=== PATIENT | male | born 1950 | race Hispanic/Latino ===

== ENCOUNTER 2025-01-01 05:41 | Inpatient (IN) | payer MEDICARE ==
[2025-01-01] VITALS (8 sets, daily range): BP systolic 104–125; BP diastolic 54–69; PULSE 66–94; RESP 17–18; TEMP 97.3–97.6; O2SAT 97–100
[~2025-01-01] VITALS: Ht 172.7 cm; Wt 53.1 kg
[~2025-01-01 05:41] MED LIST: MULTI-VITAMIN1 EACH PO
[2025-01-01 06:53] LABS: BASOPHILS % 0.3 % (0.0-1.0); EOSINOPHILS # (AUTO) 0.1 (0.0-0.4); EOSINOPHILS % 1.3 % (0.0-6.0); HEMATOCRIT 39.4 % (38.2-49.6); HEMOGLOBIN 12.5 g/dL (14.0-18.0); LYMPHOCYTES # (AUTO) 3.5 (1.0-3.2); LYMPHOCYTES % 37.7 % (18.0-39.1); MEAN CORPUSCULAR HEMOGLOBIN 28.9 pg (28-32); MEAN CORPUSCULAR HGB CONC 31.7 g/dL (31-35); MONOCYTES # (AUTO) 0.6 (0.2-0.8); MONOCYTES % 6.3 % (4.4-11.3); NEUTROPHILS % 54.2 % (38.7-80.0); PLATELET COUNT 297 x10e3/uL (140-360); RED BLOOD COUNT 4.33 x10e6/uL (4.3-5.7); RED CELL DISTRIBUTION WIDTH 14.1 % (11.7-14.4); WHITE BLOOD COUNT 9.25 x10e3/uL (4.8-10.8)
[2025-01-01] MEDS: GENTAMICIN 80MG/NS 100 ML 200 ML IV ONE (07:02)
[2025-01-01] MEDS: SODIUM CHLORIDE 0.9% 1000ML 1,000 ML ONE (07:03)
[2025-01-01] MEDS: CEFTRIAXONE 1 GM VIAL ONE (07:03)
[2025-01-01 07:16] LABS: ANION GAP 14.3 mmol/L (8-16); CALCIUM 9.8 mg/dL (8.4-10.2); CREATININE, SERUM 1.38 mg/dL (0.72-1.25); POTASSIUM 4.3 mmol/L (3.5-5.1)
[2025-01-01] MEDS ORDERED: FENTANYL CITRATE/PF 100MCG/2 ML INJ ONE (08:02)
[2025-01-01] MEDS ORDERED: PROPOFOL IV EMULSION 10 MG/ML 20 ML VIAL ONE (08:03)
[2025-01-01] MEDS ORDERED: LIDOCAINE HCL 2% LOCAL INJ 5 ML SDV VIAL INJ ONE (08:03)
[2025-01-01] MEDS ORDERED: ETOMIDATE 40 MG/ 20ML VIAL IV ONE (08:27)
[2025-01-01] MEDS ORDERED: EPHEDRINE SULFATE INJ 50 MG/ML VIAL ONE (08:32)
[2025-01-01] MEDS ORDERED: ONDANSETRON HCL INJ 2MG/ML 2ML 2 MG/ML VIAL ONE (09:06)
[2025-01-01] MEDS ORDERED: DEXAMETHASONE SOD PHOS INJ 4 MG/ML SDV ONE (09:06)
[2025-01-01] MEDS ORDERED: METOCLOPRAMIDE HCL 10 MG/2ML VIAL ONE (09:50)
[2025-01-01] MEDS ORDERED: ONDANSETRON HCL INJ 2MG/ML 2ML 2 MG/ML VIAL IV PRN (10:45)
[2025-01-01] MEDS ORDERED: DIPHENHYDRAMINE HCL INJ 50 MG/ML VIAL IM PRN (10:45)
[2025-01-01] MEDS: SODIUM CHLORIDE 0.9% 1000ML 1,000 ML IV SCH (12:48)
[2025-01-01] MEDS: SENNA-S TABLET PO SCH (17:16)
[2025-01-01] MEDS: ACETAMINOPHEN 1000 MG/100 ML IV PRN (18:14)
[2025-01-02] VITALS (10 sets, daily range): BP systolic 97–131; BP diastolic 55–83; PULSE 70–97; RESP 17–20; TEMP 97.4–98.3; O2SAT 94–100
[2025-01-02 06:15] LABS: BASOPHILS % 0.1 % (0.0-1.0); HEMATOCRIT 32.6 % (38.2-49.6); LYMPHOCYTES # (AUTO) 2.6 (1.0-3.2); LYMPHOCYTES % 19.2 % (18.0-39.1); MEAN CORPUSCULAR HEMOGLOBIN 28.6 pg (28-32); MEAN CORPUSCULAR HGB CONC 30.7 g/dL (31-35); MEAN CORPUSCULAR VOLUME 93.1 fL (81-99); MONOCYTES # (AUTO) 0.8 (0.2-0.8); MONOCYTES % 6.3 % (4.4-11.3); NEUTROPHILS # (AUTO) 9.9 (2.1-6.9); PLATELET COUNT 277 x10e3/uL (140-360); RED CELL DISTRIBUTION WIDTH 14.1 % (11.7-14.4); WHITE BLOOD COUNT 13.39 x10e3/uL (4.8-10.8)
[2025-01-02 06:31] LABS: ANION GAP 13.1 mmol/L (8-16); CALCIUM 8.3 mg/dL (8.4-10.2); CREATININE, SERUM 1.23 mg/dL (0.72-1.25); MAGNESIUM 1.5 MG/DL (1.3-2.1); POTASSIUM 4.1 mmol/L (3.5-5.1)
[2025-01-02] MEDS: CITRATE OF MAGNESIA 300ML BOTTLE PO ONE (08:03)
[2025-01-02] MEDS: SENNA-S TABLET PO SCH (09:31)
[2025-01-02] MEDS ORDERED: ASPIRIN CHEW81 MG PO (11:00)
[2025-01-02] MEDS ORDERED: FINASTERIDE5 MG PO (11:00)
[2025-01-02] MEDS ORDERED: TAMSULOSIN PO (11:00)
[2025-01-02] MEDS: ACETAMINOPHEN 325 MG TAB PO PRN (17:56)
[2025-01-03] VITALS (10 sets, daily range): BP systolic 91–125; BP diastolic 59–82; PULSE 65–87; RESP 18–20; TEMP 97.5–98.3; O2SAT 97–100
[2025-01-03 08:24] LABS: BASOPHILS % 0.4 % (0.0-1.0); EOSINOPHILS # (AUTO) 0.1 (0.0-0.4); EOSINOPHILS % 0.5 % (0.0-6.0); HEMATOCRIT 31.1 % (38.2-49.6); HEMOGLOBIN 9.4 g/dL (14.0-18.0); LYMPHOCYTES % 30.5 % (18.0-39.1); MEAN CORPUSCULAR HEMOGLOBIN 28.4 pg (28-32); MEAN CORPUSCULAR HGB CONC 30.2 g/dL (31-35); MONOCYTES # (AUTO) 0.6 (0.2-0.8); MONOCYTES % 5.9 % (4.4-11.3); NEUTROPHILS # (AUTO) 6.2 (2.1-6.9); NEUTROPHILS % 62.4 % (38.7-80.0); PLATELET COUNT 276 x10e3/uL (140-360); RED BLOOD COUNT 3.31 x10e6/uL (4.3-5.7); RED CELL DISTRIBUTION WIDTH 14.6 % (11.7-14.4); WHITE BLOOD COUNT 9.97 x10e3/uL (4.8-10.8)
[2025-01-03] MEDS: FINASTERIDE 5 MG TAB PO SCH (08:32)
[2025-01-03] MEDS: PHENAZOPYRIDINE HCL 100 MG TAB PO PRN (08:32)
[2025-01-03 10:01] LABS: ANION GAP 13.3 mmol/L (8-16); CALCIUM 8.4 mg/dL (8.4-10.2); CREATININE, SERUM 1.51 mg/dL (0.72-1.25)
[2025-01-03 10:18] LABS: POTASSIUM 3.3 mmol/L (3.5-5.1)
[2025-01-03] MEDS: ACETAMINOPHEN/CODEINE 300MG - 30MG TAB PO PRN (14:00)
[2025-01-04] VITALS (10 sets, daily range): BP systolic 110–141; BP diastolic 59–92; PULSE 57–72; RESP 18–20; TEMP 97–98; O2SAT 94–100
[2025-01-04 07:37] LABS: BASOPHILS % 0.5 % (0.0-1.0); EOSINOPHILS # (AUTO) 0.2 (0.0-0.4); EOSINOPHILS % 2.1 % (0.0-6.0); HEMATOCRIT 32.9 % (38.2-49.6); LYMPHOCYTES # (AUTO) 2.5 (1.0-3.2); LYMPHOCYTES % 29.1 % (18.0-39.1); MEAN CORPUSCULAR HEMOGLOBIN 28.7 pg (28-32); MEAN CORPUSCULAR HGB CONC 30.4 g/dL (31-35); MEAN CORPUSCULAR VOLUME 94.3 fL (81-99); MONOCYTES # (AUTO) 0.5 (0.2-0.8); MONOCYTES % 5.5 % (4.4-11.3); NEUTROPHILS # (AUTO) 5.3 (2.1-6.9); NEUTROPHILS % 62.4 % (38.7-80.0); PLATELET COUNT 261 x10e3/uL (140-360); RED BLOOD COUNT 3.49 x10e6/uL (4.3-5.7); RED CELL DISTRIBUTION WIDTH 14.5 % (11.7-14.4); WHITE BLOOD COUNT 8.52 x10e3/uL (4.8-10.8)
[2025-01-04 08:02] LABS: ANION GAP 10.6 mmol/L (8-16); CALCIUM 8.1 mg/dL (8.4-10.2); CREATININE, SERUM 1.09 mg/dL (0.72-1.25); POTASSIUM 3.6 mmol/L (3.5-5.1)
[2025-01-04] MEDS: BISACODYL 5 MG TAB EC PO SCH (14:01)
[2025-01-04] MEDS: POLYETHYLENE GLYCOL 3350 17 GM PACK PO SCH (14:01)
[2025-01-05] VITALS (10 sets, daily range): BP systolic 109–134; BP diastolic 57–84; PULSE 67–82; RESP 17–20; TEMP 97.1–98.9; O2SAT 96–100
[2025-01-05 07:34] LABS: BASOPHILS % 0.3 % (0.0-1.0); EOSINOPHILS # (AUTO) 0.3 (0.0-0.4); EOSINOPHILS % 3.3 % (0.0-6.0); HEMATOCRIT 34.8 % (38.2-49.6); HEMOGLOBIN 10.8 g/dL (14.0-18.0); LYMPHOCYTES # (AUTO) 3.2 (1.0-3.2); LYMPHOCYTES % 32.3 % (18.0-39.1); MEAN CORPUSCULAR HEMOGLOBIN 28.6 pg (28-32); MEAN CORPUSCULAR VOLUME 92.3 fL (81-99); MONOCYTES # (AUTO) 0.5 (0.2-0.8); NEUTROPHILS # (AUTO) 5.8 (2.1-6.9); NEUTROPHILS % 58.8 % (38.7-80.0); PLATELET COUNT 290 x10e3/uL (140-360); RED BLOOD COUNT 3.77 x10e6/uL (4.3-5.7); RED CELL DISTRIBUTION WIDTH 14.4 % (11.7-14.4); WHITE BLOOD COUNT 9.93 x10e3/uL (4.8-10.8)
[2025-01-05 08:08] LABS: ANION GAP 11.6 mmol/L (8-16); CALCIUM 8.3 mg/dL (8.4-10.2); CREATININE, SERUM 1.04 mg/dL (0.72-1.25); POTASSIUM 3.6 mmol/L (3.5-5.1)
[2025-01-06] VITALS (9 sets, daily range): BP systolic 111–146; BP diastolic 60–88; PULSE 69–89; RESP 18–20; TEMP 97.3–98.2; O2SAT 93–100
[2025-01-07] VITALS (9 sets, daily range): BP systolic 116–150; BP diastolic 68–92; PULSE 54–88; RESP 18–20; TEMP 97.6–98.2; O2SAT 95–100
[2025-01-08] VITALS (11 sets, daily range): BP systolic 102–129; BP diastolic 55–66; PULSE 60–78; RESP 17–20; TEMP 97.2–98; O2SAT 96–100
[2025-01-09] VITALS (9 sets, daily range): BP systolic 107–151; BP diastolic 64–83; PULSE 64–85; RESP 17–19; TEMP 97.4–97.9; O2SAT 96–100
[2025-01-10] VITALS (10 sets, daily range): BP systolic 107–150; BP diastolic 62–82; PULSE 60–81; RESP 17–20; TEMP 97.4–98; O2SAT 96–100
[2025-01-10] MEDS ORDERED: MAGNESIUM HYDROXIDE 30 ML UDC PO PRN ×2 (02:30→13:00)
[2025-01-10] MEDS: MAGNESIUM HYDROXIDE 30 ML UDC PO ONE (03:12)
[2025-01-11] VITALS (7 sets, daily range): BP systolic 108–136; BP diastolic 65–77; PULSE 66–83; RESP 17–19; TEMP 97.3–97.8; O2SAT 97–100
[2025-01-11] MEDS ORDERED: MIRALAX17 GM PO (11:10)
[2025-01-11] MEDS ORDERED: REGLAN10 MG PO (11:11)
[2025-01-11] MEDS ORDERED: AMITIZA24 MCG PO (11:11)
[2025-01-11] MEDS ORDERED: SENOKOT-S TABL1 EACH PO (11:12)
[2025-01-11] MEDS ORDERED: PENICILLIN V P500 MG PO (11:12)
== END 2025-01-11 17:08 | disposition home or self-care (01) | DRG 725 ==
LOC: OR 05:41 → PACU V 10:56 → MED/SURG3 11:30
PROVIDERS: ADMIT Internal Medicine; ATTEND Internal Medicine
PROC: 0DCP7ZZ Extirpation of Matter from Rectum, Via Natural or Artificial Opening (ICD-10-PCS; 2025-01-01)
PROC: 0T9B30Z Drainage of Bladder with Drainage Device, Percutaneous Approach (ICD-10-PCS; principal; 2025-01-01 08:22)
DX: N40.1 Benign prostatic hyperplasia with lower urinary tract symptoms (principal); R53.2 Functional quadriplegia; N39.0 Urinary tract infection, site not specified; Z16.24 Resistance to multiple antibiotics; N13.8 Other obstructive and reflux uropathy; B95.2 Enterococcus as the cause of diseases classified elsewhere; I69.820 Aphasia following other cerebrovascular disease; I69.898 Other sequelae of other cerebrovascular disease; F32.A Depression, unspecified; R31.29 Other microscopic hematuria; N31.9 Neuromuscular dysfunction of bladder, unspecified; R33.8 Other retention of urine; N39.498 Other specified urinary incontinence; N32.81 Overactive bladder; N20.0 Calculus of kidney; K56.41 Fecal impaction; Z96.0 Presence of urogenital implants; Z74.01 Bed confinement status
CPT/HCPCS: 36415; 71045; 74018; 74176; 74420; 80048; 82948; 83735; 85025; 87086; 87186; 93005; 94799; 99252; C1758; C1769; J0696; J1100; J1580; J2003; J2405; J2543; J2765; J7030